=== PATIENT | male | born 1990 | race Two or more races ===

== ENCOUNTER 2023-06-24 18:00 | Emergency (ER) | payer BC ==
[2023-06-24] MEDS ORDERED: SODIUM CHLORIDE 0.9% 1,000 ML IV STA (18:29)
--- NOTE | 2023-06-24 18:32 | ED Physician Documentation ---
PD HPI ABD PAIN - Stated complaint Stated Complaint: ABD PX, HEARTBURN - Chief complaint Chief Complaint: Abd Pain - History obtained from History obtained from: Patient - Additional information Additional information: This is a 32-year-old male who presents with abdominal discomfort, diarrhea, nausea, dizziness and heart palpitations today. He states that he has been having issues for about a year with a intermittent pain that is in the right mid flank. 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 He was seen previously in the outpatient setting, and at some point had some mildly elevated liver enzymes. This prompted patient to have a right upper quadrant ultrasound which was reportedly normal and he also saw a GI specialist and had an endoscopy and colonoscopy about 2 months ago which was reportedly normal. He then decided to do a liver cleanse the last few days in which she has taken 8 several different tablespoons of Epsom salt, drink a liter of apple juice daily for the last several days and then drink all of oil mixed with grapefruit juice today. This caused him to have abdominal pain, heartburn, diarrhea nausea and heart palpitations. He states he is actually feeling a little bit better this afternoon however he feels like the symptoms might recur. He has not had a fev er, has not had any dysuria urgency or frequency, no chest pain or difficulty breathing. He was able to eat some solid foods today. Review of Systems Constitutional: reports: Reviewed and negative Nose: reports: Reviewed and negative Throat: reports: Reviewed and negative Cardiac: reports: Palpitations. denies: Chest pain / pressure, Pedal edema, Calf pain Respiratory: reports: Reviewed and negative GI: reports: Abdominal Pain, Nausea, Vomiting, Diarrhea. denies: Abdominal Swelling, Constipation, Hematemesis, Bloody / black stool : reports: Reviewed and negative Skin: reports: Reviewed and negative Musculoskeletal: reports: Reviewed and negative Neurologic: reports: Reviewed and negative Psychiatric: reports: Reviewed and negative Endocrine: reports: Reviewed and negative PD PAST MEDICAL HISTORY - Past Medical History Past Medical History: Yes GI: Other - Past Surgical History Past Surgical History: Yes General: Colonoscopy Derm: Other - Present Medications Home Medications: Ambulatory Orders Medication Instructions Recorded Confirmed Ondansetron Odt [Zofran] 4 mg TL Q6H PRN #10 tablet 06/24/23 - Allergies Allergies/Adverse Reactions: Allergies Allergy/AdvReac Type Severity Reaction Status Date / Time No Known Drug Allergies Allergy Verified 06/24/23 18:13 - Social History Does the pt smoke?: No Smoking Status: Never smoker Does the pt drink ETOH?: Yes Does the pt have substance abuse?: No PD ED PE NORMAL - Vitals Vital signs reviewed: Yes - General General: Alert and oriented X 3, No acute distress, Well developed/nourished - HEENT HEENT: Atraumatic, Moist mucous membranes, Pharynx benign - Neck Neck: Supple, no meningeal sign, No JVD - Cardiac Cardiac: RRR, No murmur, No gallop, No rub - Respiratory Respiratory: No respiratory distress, Clear bilaterally - Abdomen Abdomen: Normal bowel sounds, Soft, Non distended, No organomegaly, Other (Focal right mid flank tenderness over the muscle. Negative Miller sign, no pain over McBurney's point, no distention, no guarding.) - Back Back: No CVA TTP, No spinal TTP - Derm Derm: Normal color, Warm and dry, No rash - Extremities Extremities: No deformity, No tenderness to palpate, Normal ROM s pain, No edema - Neuro Neuro: Alert and oriented X 3, No motor deficit, No sensory deficit, Normal speech Eye Opening: Spontaneous Motor: Obeys Commands Verbal: Oriented GCS Score: 15 - Psych Psych: Normal mood, Normal affect Results - Vitals Vitals: Vital Signs - 24 hr 06/24/23 06/24/23 18:10 19:23 Temperature 37.2 C Heart Rate 103 H 82 Respiratory 20 18 Rate Blood Pressure 153/98 H 129/86 H O2 Saturation 100 99 Oxygen O2 Source Room air - Labs Labs: Laboratory Tests 06/24/23 06/24/23 06/24/23 18:31 18:50 19:08 WBC 11.5 H RBC 5.36 Hgb 15.0 Hct 44.1 MCV 82.3 MCH 28.0 MCHC 34.0 RDW 13.0 Plt Count 311 MPV 9.6 Neut # (Auto) 8.9 H Lymph # (Auto) 1.6 Crowley # (Auto) 0.9 Eos # (Auto) 0.1 Baso # (Auto) 0.0 Absolute Nucleated RBC 0.00 Nucleated RBC % 0.0 Sodium 136 Potassium 3.6 Chloride 101 Carbon Dioxide 28 Anion Gap 7.0 BUN 11 Creatinine 0.9 Estimated GFR (MDRD) 97 Glucose 95 Calcium 9.7 Total Bilirubin 0.8 AST 43 H ALT 119 H Alkaline Phosphatase 53 Total Protein 7.5 Albumin 4.7 Globulin 2.8 Albumin/Globulin Ratio 1.7 Lipase 11 Urine Color YELLOW Urine Clarity CLEAR Urine pH 7.0 Ur Specific Baxter 1.010 Urine Protein NEGATIVE Urine Glucose (UA) NEGATIVE Urine Ketones NEGATIVE Urine Occult Blood TRACE-INTA Urine Nitrite NEGATIVE Urine Bilirubin NEGATIVE Urine Urobilinogen 0.2 (NORMAL) Ur Leukocyte Esterase NEGATIVE Ur Microscopic Review NOT INDICATED Urine Culture Comments NOT INDICATED PD Medical Decision Making - ED course Complexity details: reviewed results, re-evaluated patient, considered differential, d/w patient ED course: 32-year-old male presented with nausea, indigestion, diarrhea after using absence, juice, grapefruit and olive oil for liver cleanse. He is well- appearing on physical exam here, mildly tachycardic but other stable vital signs, afebrile. He does have some mild abdominal pain in the right side none over the liver, no no McBurney's point warm muscular in the mid right flank area and this has been present intermittently for a year thus I do not think is Related to his issues today. We did obtain labs which are generally reassuring, he has mild elevated ALT, otherwise stable liver function, his CBC is essentially normal. Urinalysis is negative for sign of infection. Given the patient has had a fairly significant abdominal work-up in the past including liver ultrasound, colonoscopy, EGD for this similar right-sided pain, I did not pursue any additional imaging today but have encouraged the patient to stop using the liver cleanse, and slowly return to a regular and generally healthy diet. Other and generally healthy diet he received a dose of Maalox here with near complete resolution of his indigestion, has had no nausea vomiting or diarrhea here and has remained stable. He has a follow-up with his PCP tomorrow which I encouraged him to keep. him to have his liver enzymes checked periodically every I discussed return precautions in detail if the patient sh ould have any new or worsening symptoms. I will discharge him with as needed Zofran if he had any recurrence of nausea or vomiting. Departure - Departure Disposition: 01 Home, Self Care Clinical Impression: Abdominal pain Qualifiers: Abdominal location: right upper quadrant Qualified Code(s): R10.11 - Right upper quadrant pain Condition: Good Instructions: Abdominal Pain Prescriptions: Ondansetron Odt [Zofran] 4 mg TL Q6H PRN #10 tablet PRN Reason: Nausea / Vomiting Comments: Your labs today are stable. Your ALT (a liver enzyme) is slightly elevated but does not require further imaging today. Your other liver labs are normal and your kidney function and blood count is normal. We do not recommend "liver cleanse" and encourage you to eat a generally healthy diet, avoid alcohol, and follow up with your primary doctor to monitor your liver function. You can take over the counter acid house supervisor for your reflux symptoms and I have prescribed a n ausea medication to use if needed. Forms: PCP List
[2023-06-24 18:37] LABS: BASOPHILS % (AUTO) 0.2 %; EOSINOPHILS # (AUTO) 0.1 10^3/uL (0.0-0.7); EOSINOPHILS % (AUTO) 0.6 %; HCT - HEMATOCRIT 44.1 % (42.0-52.0); LYMPHOCYTES # (AUTO) 1.6 10^3/uL (1.5-3.5); LYMPHOCYTES % (AUTO) 13.5 %; MEAN CORPUSCULAR VOLUME 82.3 fL (80.0-94.0); MEAN PLATELET VOLUME 9.6 fL (7.4-11.4); MONOCYTES # (AUTO) 0.9 10^3/uL (0.0-1.0); MONOCYTES % (AUTO) 7.6 %; NEUTROPHILS # (AUTO) 8.9 10^3/uL (1.5-6.6); NEUTROPHILS % (AUTO) 77.7 %; PLT - PLATELET COUNT 311 10^3/uL (130-450); RED BLOOD COUNT 5.36 10^6/uL (4.70-6.10); WHITE BLOOD COUNT 11.5 x10^3/uL (4.8-10.8)
[2023-06-24] MEDS ORDERED: MAG HYDROX/AL HYDROX/SIMETH 30 ML UDC PO STA (18:39)
[2023-06-24 19:12] LABS: ALBUMIN 4.7 g/dL (3.2-5.5); ALBUMIN/GLOBULIN RATIO 1.7 (1.0-2.2); BILIRUBIN,TOTAL 0.8 mg/dL (0.2-1.0); CALCIUM 9.7 mg/dL (8.5-10.3); CREATININE 0.9 mg/dL (0.6-1.3); POTASSIUM 3.6 mmol/L (3.5-4.5); TOTAL PROTEIN 7.5 g/dL (6.4-8.9)
[2023-06-24 19:15] LABS: BILIRUBIN,URINE NEGATIVE (NEGATIVE); GLUCOSE, URINE (UA) NEGATIVE (NEGATIVE); KETONES,URINE (UA) NEGATIVE (NEGATIVE); LEUKOCYTE ESTERASE, URINE NEGATIVE (NEGATIVE); NITRITE,URINE NEGATIVE (NEGATIVE); OCCULT BLOOD,URINE TRACE-INTA (NEGATIVE); PROTEIN,URINE NEGATIVE (NEGATIVE); UROBILINOGEN,URINE 0.2 (NORMAL) E.U./dL (NORMAL)
[2023-06-24 19:16] LABS: CLARITY,URINE CLEAR (CLEAR)
[2023-06-24] MEDS ORDERED: ONDANSETRON ODT 4 MG Prepack 2 TL PRN (19:29)
[2023-06-24 19:41] VITALS: BP 120/79
== END 2023-06-24 19:43 | disposition home or self-care (01) ==
LOC: ED 18:00
DX: R10.11 Right upper quadrant pain (principal)
CPT/HCPCS: 36415; 80053; 81003; 83690; 85025; 99283; A9270; 81001; 87086

== ENCOUNTER 2024-07-21 06:05 | Emergency (ER) | payer BC, MEDICAID ==
--- NOTE | 2024-07-21 07:16 | ED Physician Documentation ---
PD HPI CHEST PAIN - Stated complaint Stated Complaint: HEART RACING/BODY CHILLS - Chief complaint Chief Complaint: Cardiac - History obtained from History obtained from: Patient - History of Present Illness Timing - onset: Today, Last night Timing - duration: Hours Timing - details: Abrupt onset, Still present Quality: Aching, Pain Location: Substernal, Left chest, Epigastric Improved by: No: Rest Worsened by: Eating. No: Inspiration, Palpation Associated symptoms: Shortness of air, Nausea, General Weakness. No: Feeling faint / dizzy, Palpitations, Cough Similar symptoms before: Diagnosis (has had this intermittently over past months, with US RUQ and EGD and HIDA scan. He states was found gastitis on EGD but no meds right now. Also poor function GB on HIDA. Referred to surgery in [facility] by PCP but appt is still upcoming.) Review of Systems Constitutional: denies: Fever, Chills GI: denies: Diarrhea, Bloody / black stool PD PAST MEDICAL HISTORY - Past Medical History Past Medical History: Yes GI: Other Psych: Post traumatic stress disorder Other Past Medical History: Biliary Dyskenesia. - Past Surgical History Past Surgical History: Yes General: Colonoscopy Derm: Other - Present Medications Home Medications: Ambulatory Orders Medication Instructions Recorded Confirmed Ondansetron Odt [Zofran] 4 mg TL Q6H PRN #10 tablet 06/24/23 07/21/24 Dicyclomine [Bentyl] 10 mg PO QID PRN #20 cap 07/21/24 Ondansetron Odt [Zofran] 4 mg TL Q6H PRN #20 tablet 07/21/24 Pantoprazole [Protonix] 40 mg PO DAILY 30 Days #30 tablet 07/21/24 Sucralfate [Carafate] 1 gm PO BID 15 Days #300 ml 07/21/24 - Allergies Allergies/Adverse Reactions: Allergies Allergy/AdvReac Type Severity Reaction Status Date / Time No Known Drug Allergies Allergy Verified 07/21/24 06:28 - Social History Does the pt smoke?: No Smoking Status: Never smoker Does the pt drink ETOH?: Yes Does the pt have substance abuse?: No - Immunizations Immunizations are current?: Yes - POLST Patient has POLST: No PD ED PE NORMAL - Vitals Vital signs reviewed: Yes - General General: Alert and oriented X 3, Well developed/nourished, Other (seems in pain and also anxious. ) - Cardiac Cardiac: RRR, No murmur - Respiratory Respiratory: No respiratory distress, Clear bilaterally - Abdomen Abdomen: Normal bowel sounds, Soft, Non distended, Other (tender with guarding ) - Back Back: No CVA TTP - Derm Derm: Normal color, Warm and dry - Neuro Neuro: Alert and oriented X 3, No motor deficit, Normal speech - Psych Psych: No: Normal affect (anxious about symptoms and concerned about heart. ) Results - Vitals Vitals: Vital Signs - 24 hr 07/21/24 07/21/24 07/21/24 06:10 06:41 08:12 Temperature 36.9 C Heart Rate 78 92 78 Respiratory 18 18 14 Rate Blood Pressure 121/79 143/61 H 128/78 O2 Saturation 99 99 100 07/21/24 11:00 Temperature Heart Rate 80 Respiratory 14 Rate Blood Pressure 130/76 O2 Saturation 99 Oxygen O2 Source Room air - Labs Labs: Laboratory Tests 07/21/24 07/21/24 08:12 08:12 WBC 7.0 RBC 5.29 Hgb 14.9 Hct 43.9 MCV 83.0 MCH 28.2 MCHC 33.9 RDW 12.7 Plt Count 273 MPV 9.6 Neut # (Auto) 5.3 Lymph # (Auto) 1.0 L Richardson # (Auto) 0.5 Eos # (Auto) 0.1 Baso # (Auto) 0.0 Absolute Nucleated RBC 0.00 Nucleated RBC % 0.0 Sodium 136 Potassium 3.9 Chloride 100 L Carbon Dioxide 28 Anion Gap 8.0 BUN 16 Creatinine 1.0 Estimated GFR (MDRD) 85 L Glucose 108 H Calcium 10.1 Magnesium 1.7 Total Bilirubin 0.5 AST 33 ALT 50 Alkaline Phosphatase 49 Troponin I High Sens 2.7 Total Protein 7.8 Albumin 4.8 Globulin 3.0 Albumin/Globulin Ratio 1.6 Cholesterol 290 H Lipase 19 PD Medical Decision Making - ED course Complexity details: reviewed results (lipase and LFTs are good. WBC normal as is H/H so not apparent bleeding. ), considered differential (upper abd pain, more midline and to left chest. has history of gallbladder spasms and dysfunction by HIDA without stones. Has had EGD with gastritis findings too. His area of pain and provocation with spicy, alcohol, caffeine, as well as fatty foods, suggests gastritis in addition to biliary. ), d/w patient, other (considered but did not see need for imaging, with known biliary colic and gastritis in the past, no rmal labs, and improved symptoms. ) Reviewed Lab Results: he repeated a few times, about having high cholesterol so I did check it as that could be cause for pancreatic inflammation. It is some eleveated but not highly, and lipase is normal. He is not on any [id number] nor PPI and I feel a good part of his recennt symptoms sound gastric, so will treat with PPI and carafate, antinauseant, but also antispasmodic for pain episodes presuming some biliary colic as well, demonstrated n recent HIDA. has not been to surgeon as yet, was referred to one in [facility]. Pt [facility] for surgical clinic here as well, though could be insurance/preferred provider issue, so he would need to check his insurance network providers/etc. His pain improed nearly gone with IV fluids, meds for nausea, and pain, Famotidine. Departure - Departure Disposition: 01 Home, Self Care Clinical Impression: Acute epigastric pain, Biliary colic, Gastritis Condition: Stable Record reviewed to determine appropriate education?: Yes Instructions: ED Gastritis Prescriptions: Dicyclomine [Bentyl] 10 mg PO QID PRN #20 cap PRN Reason: Abdominal Pain Sucralfate [Carafate] 1 gm PO BID 15 Days #300 ml Pantoprazole [Protonix] 40 mg PO DAILY 30 Days #30 tablet Ondansetron Odt [Zofran] 4 mg TL Q6H PRN #20 tablet PRN Reason: Nausea / Vomiting Comments: Your heart and lungs appear well with clear chest x-ray and a normal EKG and a normal blood test called troponin. No signs of heart attack or heart failure. Your pain and symptoms certainly can be related to spasming of the gallbladder or underfunctioning of the gallbladder with distention. If you have that pain in that area, you can use dicyclomine antispasmodic to help with that. Your symptoms however sound likely to be some element of gastritis (irritation of the stomach itself as well as the lower esophagus). I would have you take pantoprazole daily for the next month and use sacral fate to coat the stomach t wice a day, and in particular before bed at night. Add antacid such as Maalox or Mylanta if needed. Add Tylenol if needed. You can also be sure to stay well-hydrated and as you have been previously, to try to decrease in avoid fatty foods. Follow-up with your primary care and or surgeon regarding if your symptoms continue and off. As any prescription to [facility] pharmacy. Forms: PCP List Discharge Date/Time: 07/21/24 11:00
[2024-07-21] MEDS: KETOROLAC 15 MG/ML VIAL IVP STA (08:20)
[2024-07-21] MEDS: LORazepam 2 MG/ML VIAL IVP STA (08:20)
[2024-07-21] MEDS: MAG HYDROX/AL HYDROX/SIMETH 30 ML UDC PO STA (08:21)
[2024-07-21] MEDS: FAMOTIDINE 20 MG TABLET PO STA (08:21)
[2024-07-21] MEDS: SODIUM CHLORIDE 0.9% 1,000 ML IV STA (08:21)
--- NOTE | 2024-07-21 08:21 | XRAY Report ---
PROCEDURE: Chest 1V INDICATIONS: Chest Pain TECHNIQUE: One view of the chest was acquired. COMPARISON: None. FINDINGS: Surgical changes and devices: None. Lungs and pleura: No pleural effusions or pneumothorax. Lungs are clear. Mediastinum: Mediastinal contours appear normal. Heart size is normal. Bones and chest wall: No suspicious bony lesions. Overlying soft tissues appear unremarkable. IMPRESSION: No acute cardiopulmonary process. Reviewed by: Martine Wahl MD, PhD on 07/21/2024 8:19 AM PDT Approved by: Martine Wahl MD, PhD on 07/21/2024 8:19 AM PDT Station ID: [id number]
[2024-07-21 08:47] LABS: BASOPHILS % (AUTO) 0.4 %; EOSINOPHILS # (AUTO) 0.1 10^3/uL (0.0-0.7); EOSINOPHILS % (AUTO) 1.4 %; HCT - HEMATOCRIT 43.9 % (42.0-52.0); HGB - HEMOGLOBIN 14.9 g/dL (14.0-18.0); LYMPHOCYTES % (AUTO) 14.5 %; MEAN CORPUSCULAR HEMOGLOBIN 28.2 pg (27.0-31.0); MEAN CORPUSCULAR HGB CONC 33.9 g/dL (32.0-36.0); MEAN PLATELET VOLUME 9.6 fL (7.4-11.4); MONOCYTES # (AUTO) 0.5 10^3/uL (0.0-1.0); MONOCYTES % (AUTO) 6.9 %; NEUTROPHILS # (AUTO) 5.3 10^3/uL (1.5-6.6); NEUTROPHILS % (AUTO) 76.2 %; PLT - PLATELET COUNT 273 10^3/uL (130-450); RED BLOOD COUNT 5.29 10^6/uL (4.70-6.10); RED CELL DISTRIBUTION WIDTH 12.7 % (12.0-15.0)
[2024-07-21 09:08] LABS: ALBUMIN 4.8 g/dL (3.2-5.5); ALBUMIN/GLOBULIN RATIO 1.6 (1.0-2.2); BILIRUBIN,TOTAL 0.5 mg/dL (0.2-1.0); CALCIUM 10.1 mg/dL (8.5-10.3); MAGNESIUM 1.7 mg/dL (1.7-2.3); POTASSIUM 3.9 mmol/L (3.5-4.5); TOTAL PROTEIN 7.8 g/dL (6.4-8.9)
[2024-07-21 09:09] LABS: TROPONIN I HIGH SENSITIVITY 2.7 ng/L (2.3-19.7)
[2024-07-21 11:03] VITALS: BP 130/76; O2SAT 99
== END 2024-07-21 11:00 | disposition home or self-care (01) ==
LOC: ED 06:05
DX: K80.50 Calculus of bile duct without cholangitis or cholecystitis without obstruction (principal); K29.70 Gastritis, unspecified, without bleeding; E78.00 Pure hypercholesterolemia, unspecified
CPT/HCPCS: 36415; 80053; 82465; 83690; 83735; 84484; 85025; 93005; 99284